=== PATIENT | female | born 1980 ===

== ENCOUNTER 2017-09-21 23:50 | Emergency (ER) | payer OTHER ==
[2017-09-22 00:21] VITALS: BP 139/74
[2017-09-22] MEDS ORDERED: BENADRYL IV ONE (00:26)
[2017-09-22] MEDS ORDERED: PEPCID IV ONE (00:26)
[2017-09-22] MEDS ORDERED: NACL 0.9% 1000 ML 1,000 ML IV ONE (00:54)
--- NOTE | 2017-09-22 02:56 | Emergency Department Report ---
HPI - General Chief Complaint: Allergic Reaction Time Seen by Provider: 09/22/17 02:11 - HPI HPI: Taking Bactrim for a scalp cellulitis now she broke out maculopapular erythematous diffuse rash she denies any mucous membrane involvement she denies any ulcers no chest pain no fever no desquamation here for evaluation of an acute drug rash. She has been taking Bactrim Flexeril and Naprosyn she also has been taking selenium shampoo ED Past Medical Hx - Past Medical History Previous Medical History?: No - Surgical History Hx Appendectomy: Yes - Social History Smoking Status: Never Smoker Substance Use Type: None - Medications Home Medications: Home Medications Medication Instructions Recorded Confirmed Last Taken Type Bactrim DS TAB 1 tab PO BID 09/22/17 09/22/17 Unknown History Flexeril 10 MG TAB 1 tab PO DAILY 09/22/17 09/22/17 Unknown History Naproxen 500 mg PO BID 09/22/17 09/22/17 Unknown History Prednisone 50 mg PO DAILY #5 tablet 09/22/17 Unknown Rx diphenhydrAMINE [Benadryl] 50 mg PO Q6HR PRN #15 vial 09/22/17 Unknown Rx ED Review of Systems ROS: Stated complaint: ALLERGIC REACTION TO MEDICATION Other details as noted in HPI Comment: All other systems reviewed and negative Constitutional: denies: diaphoresis, fever, malaise, weakness ENT: denies: dental pain, hearing loss, epistaxis Respiratory: denies: orthopnea, shortness of breath, SOB with exertion, SOB at rest, stridor, wheezing Cardiovascular: denies: chest pain, palpitations, dyspnea on exertion, orthopnea , edema, syncope, paroxysmal nocturnal dyspnea Endocrine: denies: excessive sweating, flushing, intolerance to cold, intolerance to heat Gastrointestinal: denies: abdominal pain, nausea, vomiting, diarrhea, constipation, hematemesis, melena, hematochezia Neurological: denies: headache, weakness, numbness, paresthesias, confusion, abnormal gait, vertigo Physical Exam - Physical Exam Vital Signs: Vital Signs 09/22/17 00:06 Temperature 99 F Pulse Rate 128 H Respiratory 20 Rate Blood Pressure 139/74 O2 Sat by Pulse 100 Oximetry General: Patient is awake alert oriented 3 and nontoxic the scalp does show evidence of seborrhea mucous membranes were clear of rash oral airway was clear and patent no stridor or drooling was appreciated there is no mucous membrane involvement or ulceration noted chest is clear to auscultation without retractions current was S1-S2 without murmur gallop or rub abdomen soft nontender without masses no rebound or guarding is appreciated there is good capillary refill skin does have a diffuse maculopapular erythematous rash with a generalized erythroderma with no desquamation no evidence of cellulitis the neck was supple strength was grossly nonfocal with normal sensory throughout ED course patient was placed on IV fluids she was given medication repeat heart rate was 102 ED Course Vital Signs 09/22/17 00:06 Temperature 99 F Pulse Rate 128 H Respiratory 20 Rate Blood Pressure 139/74 O2 Sat by Pulse 100 Oximetry ED Medical Decision Making - Medical Decision Making Patient received fluid bolus repeat heart rate and pulse and blood pressure within normal limits arrested seemed to improve she will therefore be stable for outpatient follow-up there is no evidence of any lesions or abscesses on the scalp she does have a apparently resolving cellulitis to the scalp with evidence of seborrhea we will stop the Bactrim and treat for drug rash she is has no signs of anaphylaxis at this time Critical care attestation.: If time is entered above; I have spent that time in minutes in the direct care of this critically ill patient, excluding procedure time. ED Disposition Clinical Impression: Drug rash, Seborrhea Disposition: - TO HOME OR SELFCARE Is pt being admited?: No Condition: Stable Instructions: Acute Rash (ED) Additional Instructions: Return if new or alarming symptoms see a first helper Prescriptions: diphenhydrAMINE [Benadryl] 50 mg PO Q6HR PRN #15 vial PRN Reason: Itching Prednisone 50 mg PO DAILY #5 tablet Time of Disposition: 03:40
== END 2017-09-22 04:12 | disposition home or self-care (01) ==
LOC: ED 23:50
DX: L21.9 Seborrheic dermatitis, unspecified (principal); Z90.49 Acquired absence of other specified parts of digestive tract
CPT/HCPCS: 96361; 96374; 96375; 99282; J1200; J2930; J7030